=== PATIENT | female | born 1995 | race Caucasian/White ===

== ENCOUNTER 2018-06-10 12:36 | Emergency (ER) | payer MEDICAID ==
[~2018-06-10] VITALS: Ht 160 cm; Wt 55.0 kg
[2018-06-10 12:44] VITALS: BP 115/72; PULSE 92; TEMP 98.1
[2018-06-10] MEDS ORDERED: YAZ 28 3 MG-0.01 TAB PO (13:03)
[2018-06-10 13:34] LABS: BASO % 0.7 % (0.0-2.0); EOS # 0.1 (0.0-0.7); EOS % 1.8 % (0-4.0); GRAN # 3.1 (1.4-6.5); GRAN % 55.1 % (42.2-75.2); HEMATOCRIT 39.4 % (37.0-47.0); HEMOGLOBIN 13.3 g/dl (12.5-16.0); LYMPH % 34.9 % (20.0-51.0); MEAN CELL VOLUME 95 fl (80.0-100.0); MEAN CORPUSCULAR HEMOGLOBIN 32 pg (27.0-31.0); MEAN CORPUSCULAR HGB CONC 34 g/dl (33.0-37.0); MEAN PLATELET VOLUME 10.3 fl (7.4-10.4); MONO # 0.4 (0.1-0.6); MONO % 7.3 % (1.7-9.3); PLATELET COUNT 256 K/mm3 (130-400); RED BLOOD COUNT 4.16 M/mm3 (4.10-5.30); REDCELL DISTRIBUTION WIDTH-CV 11.8 % (11.5-14.5)
[2018-06-10] MEDS ORDERED: CEPHALEXIN500 M1 PO (13:43)
[2018-06-10] MEDS ORDERED: ATARAX 25MG25 MG/TAB PO (13:43)
== END 2018-06-10 13:57 | disposition home or self-care (01) ==
LOC: COL.ER 12:36
PROVIDERS: Physician Assistant
DX: L42 Pityriasis rosea (principal); J45.909 Unspecified asthma, uncomplicated

== ENCOUNTER 2019-03-16 15:01 | Outpatient (CLI) | payer MEDICAID ==
[~2019-03-16] VITALS: Ht 160 cm; Wt 73.6 kg
[~2019-03-16 15:01] MED LIST: ATARAX 25MG25 MG/TAB PO; CEPHALEXIN500 M1 PO; YAZ 28 3 MG-0.01 TAB PO
--- NOTE | 2019-03-16 15:05 | NUR ---
Patient arrives ambulatory with FOB with complaints of contractions since 1999 last night. Patient states contractions are irregular, about every 7-10 minutes. Patient denies ROM or vaginal bleeding, reports normal movement. Changes into gown. SVE by this RN . Patient repositioned WL, assesssment completed. 1520- Dr. Jimenez notified of patient arrival, reviewed history and complaint. SVE unchanged from last office exam. Patient states she has not drank much water today and has not eaten since 2099 last night. Reviewed FHR strip and contraction pattern. Patient talking through contractions. Orders to discharge home now, no need for SVE recheck. Orders to encourage oral hydration and rest.
[2019-03-16 15:15] VITALS: BP 113/76; PULSE 71; TEMP 98
[2019-03-16] MEDS ORDERED: LEXAPRO 10MG10 MG PO (15:23)
[2019-03-16] MEDS ORDERED: TIROSINT50 MC1 PO (15:23)
[2019-03-16 15:35] VITALS: BP 113/76; PULSE 71; TEMP 98
--- NOTE | 2019-03-16 15:48 | NUR ---
Discharge instructions given. Labor precautions/kick counts reviewed. Patient denies questions. Leaves ambulatory.
== END 2019-03-16 15:56 | disposition home or self-care (01) ==
LOC: LDRO 15:01
DX: O62.9 Abnormality of forces of labor, unspecified (principal); Z3A.38 38 weeks gestation of pregnancy

== ENCOUNTER 2019-03-20 09:40 | Inpatient (IN) | payer BC ==
[~2019-03-20] VITALS: Ht 160.1 cm; Wt 73.6 kg
[2019-03-20] VITALS (14 sets, daily range): BP systolic 90–116; BP diastolic 45–82; PULSE 59–105; TEMP 97.7–98.8
[~2019-03-20 09:40] MED LIST changes: +LEXAPRO 10MG10 MG PO; +TIROSINT50 MC1 PO
--- NOTE | 2019-03-20 09:50 | NUR ---
Patient ambulates to 209 with family, changed into gown, FHR/TOCO monitors applied. Plan of care discussed. 1005: IV started in right upper arm, blood obtained and to lab, LR infusing. Assessment done and consents gone over and signed. 1158: Patient ambulates to OR
[2019-03-20 10:36] LABS: BASO % 0.3 % (0.0-2.0); EOS % 0.6 % (0-4.0); GRAN # 3.9 (1.4-6.5); GRAN % 62.2 % (42.2-75.2); LYMPH # 1.8 (1.2-3.4); LYMPH % 28.8 % (20.0-51.0); MEAN CELL VOLUME 84 fl (80.0-100.0); MEAN CORPUSCULAR HGB CONC 31 g/dl (33.0-37.0); MEAN PLATELET VOLUME 12.1 fl (7.4-10.4); MONO # 0.5 (0.1-0.6); MONO % 7.6 % (1.7-9.3); PLATELET COUNT 220 K/mm3 (130-400); RED BLOOD COUNT 3.79 M/mm3 (4.10-5.30)
[2019-03-20 10:49] LABS: HEMATOCRIT 31.9 % (37.0-47.0); HEMOGLOBIN 9.9 g/dl (12.5-16.0); MEAN CORPUSCULAR HEMOGLOBIN 26 pg (27.0-31.0)
[2019-03-21 00:20] VITALS: BP 103/57; PULSE 64; TEMP 98.1
[2019-03-21 03:10] VITALS: BP 114/79; PULSE 64; TEMP 97.3
[2019-03-21 08:02] VITALS: BP 101/58; PULSE 84; TEMP 98.1
--- NOTE | 2019-03-21 09:12 | NUR ---
Initial visit; Mom thanked for offering congratulations for the of her daughter. thanked family for choosing [facility].
[2019-03-21] MEDS ORDERED: MOTRIN 800800 MG/TAB PO (10:30)
[2019-03-21] MEDS ORDERED: PERCOCET 325 MG1 TA2 PO (10:30)
[2019-03-21 16:40] VITALS: BP 116/78; PULSE 76; TEMP 97.8
[2019-03-21 21:00] VITALS: BP 117/73; PULSE 77; TEMP 98
[2019-03-22 06:32] VITALS: BP 108/62; PULSE 86; TEMP 98.1
--- NOTE | 2019-03-22 13:10 | NUR ---
fat purification worker met with patient, per patient request, and assisted with completion of short term disability application.
== END 2019-03-22 11:15 | disposition home or self-care (01) | DRG 788 ==
LOC: OB 09:40 → LDR 10:38 → OB 03-22 11:15
PROVIDERS: ADMIT Obstetrics & Gynecology
PROC: 10D00Z1 Extraction of Products of Conception, Low, Open Approach (ICD-10-PCS; principal; 2019-03-20)
DX: O34.211 Maternal care for low transverse scar from previous cesarean delivery (principal); O99.284 Endocrine, nutritional and metabolic diseases complicating childbirth; O99.62 Diseases of the digestive system complicating childbirth; O99.344 Other mental disorders complicating childbirth; O77.0 Labor and delivery complicated by meconium in amniotic fluid; O99.02 Anemia complicating childbirth; D64.9 Anemia, unspecified; E03.9 Hypothyroidism, unspecified; K21.9 Gastro-esophageal reflux disease without esophagitis; F41.9 Anxiety disorder, unspecified; F32.9 Major depressive disorder, single episode, unspecified; Z3A.39 39 weeks gestation of pregnancy; Z37.0 Single live birth
CPT/HCPCS: J0690; J1885; J2270; J2370; J2405; J2590; J3010; J7120